=== PATIENT | female | born 1955 | race Caucasian/White ===

== ENCOUNTER 2020-06-20 11:57 | Emergency (ER) | payer MEDICARE ==
[~2020-06-20] VITALS: Ht 167.6 cm; Wt 112.7 kg
[2020-06-20 12:38] LABS: HEMATOCRIT 45.9 % (37.0-47.0); IMMATURE GRANULOCYTES 0.5 % (0.0-5.0); MEAN CELL VOLUME 94.4 fL CALC (80.0-100.0); MEAN CORPUSCULAR HGB 30.9 pG CALC (26.0-32.0); MEAN CORPUSCULAR HGB CONC 32.7 g/dL CAL (32.0-36.0); NEUT# 6.26 thou/uL (2.00-7.15); RED BLOOD COUNT 4.86 mill/uL (4.20-5.60); RED CELL DISTRI WIDTH 13.7 % (11.5-15.5)
[2020-06-20 12:50] LABS: ALBUMIN 4.1 g/dL (3.2-5.0); ALKALINE PHOSPHATASE 132 u/l (38-126); ANION GAP 11 (6-22 (CALC)); BILIRUBIN, TOTAL 0.5 mg/dL (0.0-1.4); BUN 14 mg/dL (8-23); BUN/CREATININE RATIO 19 (12-20 (CALC)); CARBON DIOXIDE 24 mmol/l (22-30); CHLORIDE 109 mmol/l (95-108); CREATININE 0.8 mg/dL (0.5-1.0); GFR > 60 ML/MIN (>=60 (CALC)); GFR FOR AFR.AMER. > 60 ML/MIN (>=60 (CALC)); POTASSIUM 3.9 mmol/l (3.5-5.1); SGOT/AST 60 u/l (9-36); SODIUM 141 mmol/l (137-146); TOTAL PROTEIN 7.9 g/dL (6.3-8.2)
[2020-06-20 12:51] LABS: ACT PARTIAL THROMBO TIME 24.3 SECONDS (20.0-32.5); PROTHROMBIN TIME 10.4 SECONDS (9.0-12.5)
[2020-06-20] MEDS ORDERED: PROTONIX40 M2 PO (13:14)
[2020-06-20] MEDS ORDERED: SINGULAIR10 MG PO (13:14)
[2020-06-20] MEDS ORDERED: TESSALON PER100 MG PO (13:47)
[2020-06-20] MEDS ORDERED: ROBITUSSIN AC10 ML PO (13:47)
[2020-06-20] MEDS ORDERED: ZOFRAN4 MG/TAB PO (13:47)
[2020-06-20] MEDS ORDERED: AMOXICILLIN875 MG PO (13:47)
[2020-06-20 14:30] VITALS: BP 145/74
--- NOTE | 2020-06-22 11:25 | NUR ---
Patient called for Covid results. Notified of positive results. Patient c/o "feeling really bad". Denies SOB, but c/o headache/ear pain. Advised patient to return to ED for evaluation. Patient states she will return to ED today.
== END 2020-06-20 14:30 | disposition home or self-care (01) ==
LOC: ED 11:57
DX: U07.1 COVID-19 (principal); R11.2 Nausea with vomiting, unspecified; R52 Pain, unspecified; J02.0 Streptococcal pharyngitis; J45.909 Unspecified asthma, uncomplicated; Z86.711 Personal history of pulmonary embolism

== ENCOUNTER 2021-05-27 13:23 | Emergency (ER) | payer MEDICARE ==
[~2021-05-27] VITALS: Ht 167.6 cm; Wt 120.0 kg
[~2021-05-27 13:23] MED LIST: AMOXICILLIN875 MG PO; PROTONIX40 M2 PO; ROBITUSSIN AC10 ML PO; SINGULAIR10 MG PO; TESSALON PER100 MG PO; ZOFRAN4 MG/TAB PO
[2021-05-27] MEDS ORDERED: MOTRIN800 MG PO (15:45)
[2021-05-27 15:47] VITALS: BP 139/83
== END 2021-05-27 15:58 | disposition home or self-care (01) ==
LOC: ED 13:23
DX: S86.912A Strain of unspecified muscle(s) and tendon(s) at lower leg level, left leg, initial encounter (principal); J45.909 Unspecified asthma, uncomplicated; X58.XXXA Exposure to other specified factors, initial encounter; Z86.711 Personal history of pulmonary embolism; Z86.718 Personal history of other venous thrombosis and embolism; M79.662 Pain in left lower leg

== ENCOUNTER 2022-04-21 12:45 | Emergency (ER) | payer MEDICARE ==
[~2022-04-21] VITALS: Ht 167.6 cm; Wt 116.3 kg
[2022-04-21] VITALS (15 sets, daily range): BP systolic 105–144; BP diastolic 63–79
[~2022-04-21 12:45] MED LIST changes: +MOTRIN800 MG PO
[2022-04-21 13:48] LABS: HEMATOCRIT 49.6 % (37.0-47.0); HEMOGLOBIN 15.8 g/dl (12.0-16.0); IMMATURE GRANULOCYTES 0.2 % (0.0-5.0); MEAN CELL VOLUME 97.3 fL CALC (80.0-100.0); MEAN CORPUSCULAR HGB CONC 31.9 g/dL CAL (32.0-36.0); NEUT# 9.2 thou/uL (2.00-7.15); RED BLOOD COUNT 5.1 mill/uL (4.20-5.60); RED CELL DISTRI WIDTH 13.4 % (11.5-15.5)
[2022-04-21 14:04] LABS: ALBUMIN 4.2 g/dL (3.2-5.0); ALKALINE PHOSPHATASE 149 u/l (38-126); ANION GAP 16 (6-22 (CALC)); BILIRUBIN, TOTAL 0.7 mg/dL (0.0-1.4); BUN 13 mg/dL (8-23); BUN/CREATININE RATIO 17 (12-20 (CALC)); CARBON DIOXIDE 21 mmol/l (22-30); CHLORIDE 108 mmol/l (95-108); CREATININE 0.8 mg/dL (0.5-1.0); GFR FOR AFR.AMER. > 60 ML/MIN (>=60 (CALC)); GFR OTHER RACES > 60 ML/MIN (>=60 (CALC)); LIPASE 103 u/l (23-300); POTASSIUM 4.3 mmol/l (3.5-5.1); SGOT/AST 37 u/l (9-36); SODIUM 141 mmol/l (137-146); TOTAL PROTEIN 7.8 g/dL (6.3-8.2)
[2022-04-21] MEDS ORDERED: ZOFRAN4 MG/TAB PO (16:21)
[2022-04-21] MEDS ORDERED: CIPROFLOXACN750 MG PO (16:21)
[2022-04-21] MEDS ORDERED: PERCOCET 5/325M1 TAB PO (16:21)
[2022-04-21] MEDS ORDERED: METRONIDAZOLE250 MG PO (16:21)
[2022-04-21 17:24] LABS: URINE BILIRUBIN - DIPSTICK NEGATIVE (NEGATIVE); URINE BLOOD DIPSTICK NEGATIVE (NEGATIVE); URINE COLOR YELLOW; URINE GLUCOSE - DIPSTICK NEGATIVE (NEGATIVE); URINE KETONE NEGATIVE (NEGATIVE); URINE LEUK ESTERASE NEGATIVE (NEGATIVE); URINE PH 5.5 (4.5-8.0); URINE PROTEIN - DIPSTICK NEGATIVE (NEG-TRACE); URINE SPECIFIC GRAVITY 1.015; URINE UROBILINOGEN - DIPSTICK 0.2 E.U./dL (0.2)
[2022-04-21 17:26] LABS: URINE NITRITE - DIPSTICK NEGATIVE (Negative)
== END 2022-04-21 17:51 | disposition home or self-care (01) ==
LOC: ED 12:45
PROVIDERS: Emergency Medicine
DX: K57.32 Diverticulitis of large intestine without perforation or abscess without bleeding (principal); J45.909 Unspecified asthma, uncomplicated; Z86.711 Personal history of pulmonary embolism